=== PATIENT | male | born 1950 | race Caucasian/White ===

== ENCOUNTER 2018-01-19 07:30 | Day surgery (SDC) | payer OTHER, MEDICARE ==
--- NOTE | 2018-01-15 14:35 | RAD REPORT ---
EXAM DESCRIPTION: RAD - Chest Pa And Lat (2 Views) - 01/15/2018 2:06 pm CLINICAL HISTORY: Preop chest, pending hernia repair surgery COMPARISON: None. TECHNIQUE: PA and lateral views of the chest were obtained. FINDINGS: The lungs are clear of acute infiltrate, mass or failure. Mild fibrotic changes are presen t. Heart size is normal and central vasculature is within normal limits. No pleural effusion or pn eumothorax seen. No acute bony finding noted. No aortic abnormality. Mild diaphragmatic eventratio n. IMPRESSION: Mild scarring changes. No acute cardiopulmonary finding.
[2018-01-15 16:34] LABS: Absolute Lymphocytes (CBC) 2.2 K/uL (0.7-4.9); Absolute Monocytes 0.5 K/uL (0.1-1.3); Absolute Neutrophil 3.6 K/uL (1.8-8.0); Basophils % 0.6 % (0-1.3); Eosinophils % 2.1 % (0-4.4); Hematocrit 43.3 % (39.6-49.0); Lymphocytes % 34.2 % (15.3-44.8); MPV 9.7 fL (7.6-11.3); Monocytes % 7.4 % (3.3-12.3); RBC Red Blood Cell Count 4.76 M/uL (4.33-5.43)
[2018-01-15 16:43] LABS: Potassium 3.6 mmol/L (3.5-5.1)
--- NOTE | 2018-01-15 16:52 | EKG ---
Test Date: 2018-01-15 Test Time: 13:56:01 [employer] Representative: CRISTEL MEASUREMENT RESULTS: Intervals: Rate: 60 WI: 194 QRSD: 100 QT: 432 QTc: 432 [place]: P: 46 WI: 194 QRS: -17 T: 27 INTERPRETIVE STATEMENTS: Normal sinus rhythm Normal ECG No previous ECG available for comparison Electronically Signed On 01-15-18 16:51:09 CDT by Benji Bobby
[2018-01-19] MEDS ORDERED: Ringers Lactate 1,000 ML IV ONE ×3 (07:54→14:27)
[2018-01-19] MEDS ORDERED: CEFAZOLIN/SWI 1gm 1 GM/10 ML SYR ONE (07:55)
[2018-01-19] MEDS ORDERED: PROPOFOL 200 MG/20 ML VIAL IV ONE ×2 (08:43→11:03)
[2018-01-19] MEDS ORDERED: FENTANYL CITR 100 MCG/2 ML ONE ×3 (08:44→11:58)
[2018-01-19] MEDS ORDERED: ONDANSETRON 4 MG/2 ML VIAL ONE (08:44)
[2018-01-19] MEDS ORDERED: ROCURONIUM 50 MG/5 ML VIAL IV ONE ×2 (08:45→11:06)
[2018-01-19] MEDS ORDERED: LIDOCAINE 1% MPF 2 ML AMPULE ONE (08:47)
[2018-01-19] MEDS ORDERED: DEXAMETHASONE 10 MG/ML VIAL ONE (10:26)
[2018-01-19] MEDS ORDERED: GLYCOPYRROLATE 0.2 MG/ML SYR ONE ×2 (11:05→11:33)
[2018-01-19] MEDS ORDERED: ONDANSETRON HCL 40 MG/20 ML VIAL ONE (11:07)
[2018-01-19] MEDS ORDERED: EPHEDRINE SULF 50 MG/10 ML SYR ONE (11:35)
[2018-01-19] MEDS ORDERED: NEOSTIGMINE 1 MG/ML -5 ML SYRINGE ONE (12:12)
--- NOTE | 2018-01-19 13:24 | P.BOP ---
Preoperative diagnosis: tender left inguinal hernia Postoperative diagnosis: same, incarcerated left inguinal hernia Primary procedure: Open repair of tender incarcerated left inguinal hernia Theatrical Dresser: Mary Freire) Estimated blood loss: <10cc Specimen: hernia sac, lipoma of cord Findings: direct and indirect hernia Anesthesia: General Complications: None Transferred to: Recovery Room Condition: Good
[2018-01-19] MEDS ORDERED: CODEINE 30MG/APAP 300MG TAB ONE (13:56)
[2018-01-19] MEDS ORDERED: MEPERIDINE HCL 25 MG/0.5 ML ONE (14:29)
[2018-01-19] MEDS ORDERED: PROMETHAZINE 25 MG/ML VIAL ONE (14:33)
[2018-01-19] MEDS ORDERED: HYDROCODONE/APAP 10/325 TAB ONE (18:16)
[2018-01-19] MEDS ORDERED: TAMSULOSIN 0.4 MG SR CAP PO ONE (19:00)
--- NOTE | 2018-01-20 22:59 | OP ---
Date of Procedure: 01/19/2018 Surgeon: Juan Aguilar MD Postoperative Diagnosis: Tender left inguinal hernia. Postoperative Diagnosis: Tender incarcerated left inguinal hernia. Procedure: Open repair of tender incarcerated left inguinal hernia with mesh. Specimen: Hernia sac, lipoma of the cord. Findings: Direct and indirect hernias. Anesthesia: General plus local. Indications: This is the case of a 67-year-old patient, who comes to us with tender hernias. In the last few days, it is getting worse. When he came to the evaluation this morning, it feels like it i s incarcerated. Initially, it was reducible. So, the patient fully explained the need for laparosco pic, possible open repair of left inguinal hernia since he wants me to give it a try laparoscopically , with benefits, alternatives, and risks, which include, but are not limited to infection, bleeding, damage to adjacent structures, anesthesia complication, chronic nerve damage, tenderness, numbness, t esticular damage, recurrence, [place], even . He also understands this may not relieve his symptoms. He might need more than one surgical intervention. I explained the pros and cons of mesh placement and after discussing pros and cons, allowed him to ask questions and answered to his satisfaction. Then he allowed me to use mesh. Description Of Procedure: The patient was brought to the operating room, placed in supine position. Anesthesia was given without complication. Abdominal area was prepped and draped in a sterile fashi on. We proceeded to make an infraumbilical incision. Incision was carried down until we found the a nterior rectus sheath, was opened, retracted the muscle laterally, find the posterior rectus sheath. A space maker trocar was placed in that area. Balloon was inflated under direct visualization with the camera in place. We were able to visualize the preperitoneal space, but there is a scar tissue i n that area now. He had previous surgery on the right inguinal region, but not on the left side. We can address 1 hernia disk whereas the second hernia, the direct hernia, is a little bit deeper. The re is some scar tissue in that area. Something is incarcerated in that area and there was omentum th ere. It cannot be reduced, but this was at that moment, I believe it is safer to proceed to open rashad hnique, so at that moment we proceeded to remove the trocars under direct visualization and deflated the area and proceeded to make an incision in the left inguinal region. Incision was carried down to Dian's fascia. External oblique aponeurosis was identified, opened in the direction of the fibers , connecting to the superficial inguinal ring. Ilioinguinal nerve and iliohypogastric nerve were pro tected behind external oblique aponeurosis. New was placed around the spermatic cord and then we identified that the patient has 2 hernias, indirect and direct. So, we removed the hernia sac from the spermatic cord. Follow that to the deep inguinal ring. I opened the hernia sac. The omentum wa s there. It was carefully reduced into the abdominal cavity. Twist the hernia sac and suture ligate d with Prolene. Then, after that, we went to the direct hernia. The floor of the canal has a hernia . There is no incarceration of that area. So in that case, we proceeded then to just reduce the her dario sac in this case and then reconstructed the floor of the canal by putting the stitches and securi ng that to the pubic tubercle and then shelving edge of the inguinal ligament, transversalis fascia. A mesh plug was placed in the deep inguinal ring, secured that with VersaTack all the time protectin g the spermatic cord. Then, a mesh sheet was placed in the floor of the canal securing that to the p ubic tubercle, shelving edge of the inguinal ligament, transversalis fascia, and the tails looped yakelin und the spermatic cord, making sure there is no strangulation. Once that mesh was secured, we arnol t the ilioinguinal nerve and iliohypogastric nerve back into the inguinal canal, reconstructed the viramontes perficial inguinal ring, and closed the external oblique aponeurosis to make sure the nerves are not included. The area was irrigated. The Dian's fascia was closed with 3-0 chromic and the skin with jasen. Sponge counts and instrument counts were correct. The patient tolerated the procedure well. The patient was sent to [facility] in stable condition. KAYLIE/SUZANNE Voice ID: [id number] Report ID: [id number]
--- NOTE | 2018-01-20 22:59 | OP ---
Surgeon: Juan Aguilar MD Diagnosis: Tender left inguinal hernia. Procedure: Open repair of tender incarcerated left inguinal hernia with mesh. Disposition: Home. Activity: As tolerated. No heavy lifting. Followup: Follow up in my office in 1 week. Call for appointment on [phone]. Cold compress to the left inguinal region for the next 24 hours. Medications: See orders. KAYLIE/SUZANNE Voice ID: [id number] Report ID: [id number]
== END 2018-01-19 18:40 | disposition home or self-care (01) ==
LOC: OR 07:30
PROVIDERS: ATTEND Surgery
PROC: 0YU60JZ Supplement Left Inguinal Region with Synthetic Substitute, Open Approach (ICD-10-PCS; principal; 2018-01-19 09:30)
DX: K40.30 Unilateral inguinal hernia, with obstruction, without gangrene, not specified as recurrent (principal); I10 Essential (primary) hypertension; Z79.82 Long term (current) use of aspirin; Z80.1 Family history of malignant neoplasm of trachea, bronchus and lung; Z82.49 Family history of ischemic heart disease and other diseases of the circulatory system
CPT/HCPCS: 36415; 49507; 71046; 80048; 85025; 88302; 93005; J0690; J2175; J2405; J2550; J2710; J3010 ×2; J1100; J2001

== ENCOUNTER 2022-04-11 11:58 | Day surgery (SDC) | payer OTHER, MEDICARE ==
--- NOTE | 2022-04-09 14:38 | RAD REPORT ---
EXAM DESCRIPTION: RAD - Chest Pa And Lat (2 Views) - 04/09/2022 2:29 pm CLINICAL HISTORY: Pre op pending heart catheterization COMPARISON: Pa And Lat (2 Views) dated 01/15/2018 FINDINGS: Lines: None. Lungs: No evidence of edema or pneumonia. Pleural: No significant pleural effusions or pneumothorax. Cardiac: The heart size is within normal limits. Mediastinum: Within normal limits. Bones: No acute fractures. Other: None IMPRESSION: No acute cardiopulmonary disease.
[2022-04-09 14:40] LABS: Absolute Lymphocytes (CBC) 2.1 K/uL (0.7-4.9); Hematocrit 41.2 % (39.6-49.0); Lymphocytes % 30.5 % (15.3-44.8); MCV 94.3 fL (80-100); MPV 8.4 fL (7.6-11.3); RBC Red Blood Cell Count 4.37 M/uL (4.33-5.43)
[2022-04-09 14:44] LABS: Protime INR 1.06
[2022-04-09 14:56] LABS: Potassium 4.1 mmol/L (3.5-5.1)
--- NOTE | 2022-04-10 16:05 | EKG ---
Test Date: 2022-04-09 Test Time: 14:16:07 Plastic Molder: VALERIE MEASUREMENT RESULTS: Intervals: Rate: 59 OR: 192 QRSD: 100 QT: 442 QTc: 437 [place]: P: 62 OR: 192 QRS: 1 T: 64 INTERPRETIVE STATEMENTS: Sinus bradycardia Otherwise normal ECG Compared to ECG 01/15/2018 13:56:01 Sinus rhythm no longer present Electronically Signed On 04-10-22 16:03:55 PROFESSIONAL BONDSMAN by Phil Escobar
[~2022-04-11 11:58] MED LIST: NA CHLORIDE 0.9% 500 ML ONE
[2022-04-11 12:23] VITALS: TEMP 97
[2022-04-11] MEDS ORDERED: HEPA 1000U/500MLS 2,000 UNIT/1,000 ML BAG IV ONE (13:31)
[2022-04-11] MEDS ORDERED: LIDOCAINE 1% 20 ML MDV ONE (13:31)
[2022-04-11] MEDS ORDERED: TICAGRELOR 90 MG TABLET PO ONE (13:32)
[2022-04-11] MEDS ORDERED: ASPIRIN 325 MG TAB ONE (13:32)
[2022-04-11] MEDS ORDERED: VERAPAMIL HCL 10 MG/4 ML VIAL IV ONE (13:32)
[2022-04-11] MEDS ORDERED: CLOPIDOGREL 75 MG TABLET ONE (13:32)
[2022-04-11] MEDS ORDERED: HEPARIN 10,000 UNIT/10 ML VIAL IV ONE (13:32)
[2022-04-11] MEDS ORDERED: ATROPINE SULF 1 MG/10 ML SYR IV ONE (13:32)
[2022-04-11] MEDS ORDERED: HEPARIN 5000 UNIT/ML 1 ML VIAL ONE (13:32)
[2022-04-11] MEDS ORDERED: MIDAZOLAM HCL 2 MG/2 ML INJ ONE (13:33)
[2022-04-11] MEDS ORDERED: FENTANYL CITR 100 MCG/2 ML ONE (13:33)
[2022-04-11 14:59] VITALS: O2SAT 97
[2022-04-11 15:39] VITALS: BP 135/70
--- NOTE | 2022-04-12 00:12 | OP ---
Date of Procedure: 04/11/2022 Surgeon: UNA LEONARDO Procedures Performed: 1.Selective coronary angiogram. 2.LV gram. 3.Left heart catheterization. Indication For Procedure: Abnormal stress test. Access: Right radial artery 6-[place] closed with TR band. Complications: None. Estimated Blood Loss: Bleeding less than 10 mL. Anesthesia: Total sedation time was 35 minutes, used fentanyl and Versed. Description Of Procedure: After risks, benefits, and alternatives were explained, the patient agreed to the procedure and signed informed consent. The patient was brought into the cardiac catheterizat ion laboratory and prepped and draped in usual sterile fashion. Then I accessed right radial artery using pediatric micropuncture kit, placed a 6-[place] Slender sheath and took 5-[place] Kingsley 4 cathete r into the aortic root, engaged left main and right coronary artery, and took standard views. Then I took a 6-[place] angled pigtail catheter into the aortic root, across the aortic valve, and measured the LVEDP and perform the LV gram and then pullback did not record any gradient. Then the catheter w as removed, sheath was removed, and TR band was applied with good hemostasis. Findings: 1.Left main is large with distal 30% to 40% stenosis. 2.LAD: There is diffuse disease proximally and there is a mid JEWEL SUPERVISOR 100%, chronically totally occlude d with collaterals from the RCA and diagonal 1 branch has proximal 90% stenosis. 3.Left circumflex: [id number] size vessel. OM1 branch has diffuse 90% stenosis. 4.RCA: Large and dominant and has multiple areas of stenosis ranging between 50% to 60%; however, t he mid segment has focal 70% and distally it is 70% to 80% and gives collaterals to the LAD. 5.LVEDP is normal between 8 and 12 mm hg. 6.Normal left ventricular ejection fraction of 65% and normal wall motion by LV gram. Conclusion: 1.Severe multivessel disease. 2.Normal LVEDP. 3.Normal ejection fraction and wall motion. Recommendation: I will refer for coronary artery bypass surgery. SR/MODL Voice ID: [id number] Report ID: [id number]
== END 2022-04-11 16:30 | disposition home or self-care (01) ==
LOC: CCL 11:58
PROVIDERS: ATTEND Internal Medicine
DX: I25.10 Atherosclerotic heart disease of native coronary artery without angina pectoris (principal); I25.82 Chronic total occlusion of coronary artery; I10 Essential (primary) hypertension; Z79.899 Other long term (current) drug therapy
CPT/HCPCS: 93005; 85025; 80048; 36415; 85610; 85730; 71046; 93458; 76937; C1893; Q9966; J1644 ×2; J2250; J3010; J7040; J0461